=== PATIENT | female | born 1990 | race Caucasian/White ===

== ENCOUNTER 2017-08-15 19:06 | Emergency (ER) | payer MEDICAID ==
[~2017-08-15 19:06] MED LIST: IBUP800T23 PO
[2017-08-15 19:09] VITALS: BP 118/62; PULSE 65; RESP 18; TEMP 97.6; O2SAT 100
[2017-08-15] MEDS ORDERED: FLUT1SPR5 EACH NARE (19:19)
[2017-08-15] MEDS ORDERED: AMOX875T PO (19:19)
[2017-08-15] MEDS ORDERED: FEXO15TA PO (19:19)
--- NOTE | 2017-08-15 19:23 | PD ---
HPI Chief Complaint: Cold / Flu Symptoms Time Seen by Provider: 19:13 Travel History International Travel<30 days: No Contact w/Intl Traveler<30days: No Traveled to known affect area: No History of Present Illness HPI 27-year-old female presents emergency department with upper respiratory symptoms with decreasing sinus infection symptoms over the past several days. Patient has history of recurrent sinus infections in the past. Patient currently takes Zyrtec and uses Flonase without improvement. She has been using ibuprofen without relief. She describes a headache and pressure behind both eyes and cheeks with her upper teeth "hurting". She denies significant cough, fever, chills, nausea, vomiting, or other symptoms. Patient is allergic to diphenhydramine. PFSH Past Medical History Hx Anticoagulant Therapy: No Bipolar Disorder: Yes Anxiety: Yes Cardiovascular Problems: No Chemotherapy: No Cerebrovascular Accident: No Diabetes: No Diminished Hearing: No Musculoskeletal: Yes (HX OF SCOLIOSIS) Respiratory: No Immunizations Current: Yes ?: Not LMP: 08/08/17 : 2 Para: 2 Past Surgical History Surgical History: No Previous Surgery Hysterectomy: No Social History Alcohol Use: No Tobacco Use: No Substance Use: No Allergies-Medications (Allergen,Severity, Reaction): Coded Allergies: diphenhydramine (Verified Allergy, Severe, 08/15/17) Reported Meds & Prescriptions Reported Meds & Active Scripts Active Ibuprofen 800 Mg Tab 800 Mg PO Q8HR 10 Days Review of Systems Except as stated in HPI: all other systems reviewed are Neg General / Constitutional: No: Fever, Chills Eyes: No: Visual changes HENT: Positive: Headaches, Sore Throat, Rhinitis, Rhinorrhea, Congestion, No: Vertigo, Lightheadedness, Nosebleed, Neck Stiffness, Neck Pain, Dental Difficulties, Earache Cardiovascular: No: Chest Pain or Discomfort Respiratory: No: Shortness of Breath Gastrointestinal: No: Abdominal Pain Genitourinary: No: Dysuria Musculoskeletal: No: Pain Skin: No Rash Neurologic: No: Weakness Psychiatric: No: Depression Endocrine: No: Polydipsia Hematologic/Lymphatic: No: Easy Bruising Physical Exam Narrative GENERAL: Patient appears in no obvious distress per SKIN: Warm and dry. Normal color. Normal turgor HEAD: Atraumatic. Normocephalic. Patient has moderate frontal and maxillary sinus tenderness with palpation and percussion bilaterally. EYES: Pupils equal and round. No scleral icterus. No injection or drainage. ENT: No nasal bleeding or discharge. Mucous membranes pink and moist. TMs are somewhat dull bilaterally with no injection. Posterior pharynx is injected, with cobblestoning noted. NECK: Trachea midline. Supple nontender. CARDIOVASCULAR: Regular rate and rhythm. RESPIRATORY: No accessory muscle use. Clear to auscultation. Breath sounds equal bilaterally. MUSCULOSKELETAL: Extremities without clubbing, cyanosis, or edema. No obvious deformities. NEUROLOGICAL: Awake and alert. No obvious cranial nerve deficits. Motor grossly within normal limits. Five out of 5 muscle strength in the arms and legs. Normal speech. PSYCHIATRIC: Appropriate mood and affect; insight and judgment normal. Data Data Last Documented VS Vital Signs Date Time Temp Pulse Resp B/P (MAP) Pulse Ox O2 Delivery O2 Flow Rate FiO2 08/15/17 19:09 97.6 65 18 118/62 (80) 100 MDM Medical Decision Making Medical Screen Exam Complete: Yes Emergency Medical Condition: Yes Differential Diagnosis Allergic rhinitis. Sinusitis. Postnasal drip. Narrative Course Patient is medically stable at time of exam. Patient is treated with amoxicillin 875 mg twice daily for 10 days Patient is given Pau 180 mg daily #30. Patient is given Flonase nasal spray 2 sprays each nostril daily. Patient to take ibuprofen as needed and follow-up as needed Diagnosis Primary Impression: Acute recurrent pansinusitis Patient Instructions: Allergies (ED), General Instructions, Sinusitis (ED) Additional Instructions: Patient is treated with amoxicillin 875 mg twice daily for 10 days Patient is given Pau 180 mg daily #30. Patient is given Flonase nasal spray 2 sprays each nostril daily. Patient to take ibuprofen as needed and follow-up as needed Med/Other Pt SpecificInfo: Prescription(s) given Scripts Fexofenadine (Pau Allergy) 180 Mg Tab 180 MG PO DAILY for Allergy Management, #30 TAB 0 Refills Prov: Moustapha Keita MD 08/15/17 Fluticasone Nasal Witten (Flonase Nasal Witten) 50 Mcg/Act Witten 100 MCG EACH NARE BID for Allergies, #1 BOTTLE 0 Refills Prov: Moustapha Keita MD 08/15/17 Amoxicillin (Amoxicillin) 875 Mg Tab 875 MG PO BID for Infection for 10 Days, #20 TAB 0 Refills Prov: Moustapha Keita MD 08/15/17 Disposition: 01 DISCHARGE HOME Condition: Stable Robert Graham August 15, 2017 19:23
== END 2017-08-15 19:45 | disposition home or self-care (01) ==
LOC: NEPK 19:06
DX: J01.41 Acute recurrent pansinusitis (principal); F31.9 Bipolar disorder, unspecified; F41.9 Anxiety disorder, unspecified; M41.9 Scoliosis, unspecified
CPT/HCPCS: 99283